=== PATIENT | male | born 1990 | race Caucasian/White ===

== ENCOUNTER 2023-05-17 06:35 | Day surgery (SDC) | payer OTHER ==
[~2023-05-17 06:35] MED LIST: Lactated Ringers 1,000 ML IV SCH; Sodium Chloride 0.9% 10 ML Syringe FLUSH PRN; Sodium Chloride 0.9% 10 ML Syringe FLUSH SCH
[2023-05-17] MEDS ORDERED: Bupivacaine 0.25% 10 ML SDV ONE (07:03)
[2023-05-17] MEDS ORDERED: Lidocaine 1% 5 ML VIAL ONE (07:19)
[2023-05-17] MEDS ORDERED: Propofol 200 MG/20 ML SDV ONE (07:19)
[2023-05-17] MEDS ORDERED: fentaNYL 100 MCG/2 ML SDV ONE (07:19)
[2023-05-17] MEDS ORDERED: Sodium Bicarbonate 8.4% 50 MEQ/50 ML SDV ONE (07:20)
[2023-05-17] MEDS ORDERED: Lidocaine 0.5% 50 ML SDV ONE (07:20)
[2023-05-17] MEDS ORDERED: Midazolam 1 MG/ML 2 ML SDV ONE (07:20)
[2023-05-17] MEDS ORDERED: Lidocaine 1% 4 ML ONE (07:20)
[2023-05-17] MEDS ORDERED: ceFAZolin 2 GM Vial ONE (07:24)
[2023-05-17] MEDS ORDERED: Ketorolac 30 MG/ML SDV ONE (08:34)
== END 2023-05-17 09:20 | disposition home or self-care (01) ==
LOC: JD.SDS 06:35
PROVIDERS: ATTEND Orthopaedic Surgery
DX: M65.4 Radial styloid tenosynovitis [de Quervain] (principal); F17.290 Nicotine dependence, other tobacco product, uncomplicated; Z79.899 Other long term (current) drug therapy
CPT/HCPCS: 25000; 87641; J0690; J1885; J2250; J2704; J3010; J3490; J7120